=== PATIENT | male | born 1990 | race African-American/Black ===

== ENCOUNTER 2018-04-07 23:48 | Emergency (ER) | payer OTHER ==
[2018-04-07 23:52] VITALS: BP 122/86; PULSE 68; TEMP 98; BMI 20.3
--- NOTE | 2018-04-08 00:20 | PDOC ---
*Physical Exam - Vital Signs Last Vital Signs Temp Pulse Resp BP Pulse Ox 98.0 F 68 18 122/86 99 04/07/18 23:50 04/07/18 23:50 04/07/18 23:50 04/07/18 23:50 04/07/18 23:50 Medical Decision Making - Medical Decision Making 04/08/18 00:20 agree with care from ASHLY Larson *DC/Admit/Observation/Transfer Diagnosis at time of Disposition: Visit for suture removal - Discharge Dispostion Disposition: HOME Condition at time of disposition: Stable - Referrals Referrals: Efra Austin MD [Primary Care Provider] - - Patient Instructions Printed Discharge Instructions: DI for Suture Removal Additional Instructions: Return to emergency department for any concerns. - Post Discharge Activity
--- NOTE | 2018-04-08 00:36 | PDOC ---
Suture Removal/Wound Check HPI - History of Present Illness Chief Complaint: Suture/Staple Removal (other) Stated Complaint: STITCHES REMOVAL Time Seen by Provider: 04/08/18 00:13 History Source: Yes: Patient Exam Limitations: Yes: No Limitations Treated at: Other ED Date of Last ED visit: 03/26/18 - Previous ED Treatment Type of procedure performed on last visit: Yes: Laceration Repair Tetanus Immunization: Yes: Given at last ED visit Antibiotics Prescribed: No (pt denies) Past History - Past Medical History Allergies/Adverse Reactions: Allergies Allergy/AdvReac Type Severity Reaction Status Date / Time No Known Allergies Allergy Verified 04/07/18 23:52 COPD: No - Suicide/Smoking/Psychosocial Hx Smoking History: Never smoked Suture Removal/Wound Check PE - Physical Exam Laceration/Wound Check Symptoms: reports: None Current Severity Level: None Maximum Severity Level: None Pain Localization: None Location of Laceration/Wound: right: Jaw (13 sutures), left: Eye (3 sutures) Pain Radiation: None *Review of Systems - Review of Systems Able to Perform ROS?: Yes All Other Systems: Reviewed and Negative *Physical Exam - Vital Signs Last Vital Signs Temp Pulse Resp BP Pulse Ox 98.0 F 68 18 122/86 99 04/07/18 23:50 04/07/18 23:50 04/07/18 23:50 04/07/18 23:50 04/07/18 23:50 - Physical Exam General Appearance: Yes: Appropriately Dressed. No: Apparent Distress Integumentary: positive: Other (7 cm linear laceration repair noted to patient right mandible. [address] Wound edges well approximated. No erythema , discharge or drainage present. 2 cm linear laceration to left eyebrow with [address] Wound edges well approximated. No erythema discharge or drainage present.) Medical Decision Making - Medical Decision Making 04/08/18 00:36 A/P: 27-year-old male presents for suture removal 7 cm linear laceration repair noted to patient right mandible. - [address]. Wound edges well approximated. - No erythema, discharge or drainage present. 2 cm linear laceration to left eyebrow with [address] - Wound edges well approximated. - No erythema discharge or drainage present. Sutures removed without difficulty. Patient tolerated well Discharge home *DC/Admit/Observation/Transfer Diagnosis at time of Disposition: Visit for suture removal - Discharge Dispostion Disposition: HOME Condition at time of disposition: Stable Decision to Admit order: No - Referrals Referrals: Efra Austin MD [Primary Care Provider] - - Patient Instructions Printed Discharge Instructions: DI for Suture Removal Additional Instructions: Return to emergency department for any concerns. - Post Discharge Activity
== END 2018-04-08 00:43 | disposition home or self-care (01) ==
LOC: JER 23:48
DX: Z48.817 Encounter for surgical aftercare following surgery on the skin and subcutaneous tissue (principal); Z48.02 Encounter for removal of sutures
CPT/HCPCS: 99281-25

== ENCOUNTER 2020-10-14 14:25 | Emergency (ER) | payer OTHER ==
[2020-10-14 14:30] VITALS: BP 123/71; PULSE 80; TEMP 97; BMI 21.1
[2020-10-14] MEDS ORDERED: KETOROLAC TROMETHAMINE 30 MG/1 ML VIAL IM ONE (15:46)
[2020-10-14] MEDS ORDERED: CYCLOBENZAPRINE HCL 10 MG TABLET (FP) PO ONE (15:46)
[2020-10-14] MEDS ORDERED: KETOROLAC TROMETHAMINE 30 MG/1 ML VIAL ONE (15:48)
[2020-10-14] MEDS ORDERED: CYCLOBENZAPRINE HCL 10 MG TABLET (FP) ONE (15:48)
== END 2020-10-14 15:54 | disposition home or self-care (01) ==
LOC: JERFT 14:25
PROC: 3E0233Z Introduction of Anti-inflammatory into Muscle, Percutaneous Approach (ICD-10-PCS; principal; 2020-10-14)
DX: M54.6 Pain in thoracic spine (principal); S06.0X0A Concussion without loss of consciousness, initial encounter
CPT/HCPCS: 99284-25

== ENCOUNTER 2023-08-12 09:23 | Emergency (ER) | payer OTHER ==
[2023-08-12 09:48] VITALS: BP 125/48; PULSE 69; RESP 19; TEMP 98.3; BMI 21.2
[2023-08-12] MEDS ORDERED: KETOROLAC TROMETHAMINE 30 MG/1 ML VIAL IM ONE (11:05)
[2023-08-12] MEDS ORDERED: METHOCARBAMOL 750 MG TABLET PO ONE (11:05)
[2023-08-12] MEDS ORDERED: KETOROLAC TROMETHAMINE 30 MG/1 ML VIAL ONE (11:15)
[2023-08-12] MEDS ORDERED: METHOCARBAMOL 500 MG TABLET ONE (11:15)
== END 2023-08-12 12:03 | disposition home or self-care (01) ==
LOC: JERFT 09:23
PROC: 3E0233Z Introduction of Anti-inflammatory into Muscle, Percutaneous Approach (ICD-10-PCS; principal; 2023-08-12)
DX: M54.50 Low back pain, unspecified (principal)
CPT/HCPCS: 99284-25

== ENCOUNTER 2023-08-16 15:03 | Emergency (ER) | payer OTHER ==
[2023-08-16 15:07] VITALS: BP 115/71; PULSE 66; RESP 18; TEMP 98; BMI 21.1
[2023-08-16] MEDS ORDERED: KETOROLAC TROMETHAMINE 30 MG/1 ML VIAL IM ONE (16:26)
[2023-08-16] MEDS ORDERED: METHOCARBAMOL 750 MG TABLET PO ONE (16:33)
[2023-08-16] MEDS ORDERED: KETOROLAC TROMETHAMINE 30 MG/1 ML VIAL ONE (16:38)
[2023-08-16] MEDS ORDERED: METHOCARBAMOL 500 MG TABLET ONE (16:38)
== END 2023-08-16 19:21 | disposition home or self-care (01) ==
LOC: JER 15:03
PROC: 3E0233Z Introduction of Anti-inflammatory into Muscle, Percutaneous Approach (ICD-10-PCS; principal; 2023-08-16)
DX: M54.50 Low back pain, unspecified (principal); G89.29 Other chronic pain
CPT/HCPCS: 72131-TC; 99284-25